=== PATIENT | male | born 1950 | race Caucasian/White ===

== ENCOUNTER 2016-07-17 15:14 | Emergency (ER) | payer MEDICARE, OTHER ==
[2016-07-17] MEDS ORDERED: LIDOCAINE-MPF 1% 5 ML VIAL ONE (15:20)
[2016-07-17] MEDS ORDERED: SODIUM BICARBONATE ABBOJECT 50 MEQ/50 ML SYRINGE ONE (15:20)
[2016-07-17] MEDS ORDERED: TETANUS/DIPHTHERIA/PERTUSSIS 0.5 ML SYRINGE IM ONE ×2 (15:21→15:36)
== END 2016-07-17 15:57 | disposition home or self-care (01) ==
DX: S61.213A Laceration without foreign body of left middle finger without damage to nail, initial encounter (principal); W27.1XXA Contact with garden tool, initial encounter; Y93.H2 Activity, gardening and landscaping; Z23 Encounter for immunization

== ENCOUNTER 2019-11-30 13:17 | Outpatient (CLI) | payer MEDICARE, OTHER | END 2019-11-30 13:18 | disposition home or self-care (01) | LOC: LAB.S 13:17 | PROVIDERS: ATTEND Ophthalmology | DX: Z01.812 Encounter for preprocedural laboratory examination (principal); H25.11 Age-related nuclear cataract, right eye; Z20.828 Contact with and (suspected) exposure to other viral communicable diseases ==

== ENCOUNTER 2019-12-02 07:36 | Day surgery (SDC) | payer MEDICARE, OTHER ==
[~2019-12-02 07:36] MED LIST: BRIMONIDINE 0.2% OPHTH DROPS 5 ML ONE; BSS/LIDOCAINE/EPINEPHRINE 1 ML SYRINGE ONE; EPINEPHrine 1 MG/ML AMP ONE; TRIAMCIN/MOXIFLOX OPHTHALMIC 0.6 ML VIAL IO ONE; VANCOMYCIN OPHTHALMI 8MG/0.8ML 8 MG/0.8 ML SYRINGE IO ONE; timoloL maleate 0.5% OPHTH DROPS (10ML) ONE
[2019-12-02] MEDS ORDERED: PHENYLEPHRINE 2.5% OPHTH 2 ML DROPS ONE (07:41)
[2019-12-02] MEDS ORDERED: PROPARACAINE 0.5% OPHTH DROPS 15 ML ONE (07:41)
[2019-12-02] MEDS ORDERED: CYCLOPENTOLATE 1% OPHTH DROPS 2 ML ONE (07:41)
[2019-12-02] MEDS ORDERED: KETOROLAC 0.45% OPHTH DROPS ONE (07:41)
[2019-12-02] MEDS ORDERED: LACTATED RINGERS 500 ML IV ONE ×2 (07:57→09:27)
--- NOTE | 2019-12-02 08:35 | ANESTHESIA ---
Pre-Anesthesia VS, & Labs - Diagnosis right eye cataract - Procedure right ecce with IOL Vital Signs: Temp Pulse Resp BP Pulse Ox 36.8 C 94 18 158/84 H 98 12/02/19 07:42 12/02/19 07:42 12/02/19 07:42 12/02/19 07:42 12/02/19 07:42 Height 5 ft 11.5 in Weight (kg) 101 kg Body Mass Index 28.5 - NPO >8 hours Home Medications and Allergies No Known Home Medications 07/17/16 Allergies/Adverse Reactions: Allergies Allergy/AdvReac Type Severity Reaction Status Date / Time ibuprofen [From Advil] AdvReac Unknown Hives Unverified 12/01/19 12:27 aluminum hydroxide AdvReac Hives Verified 12/01/19 12:27 Anes History & Medical History - Anesthetic History Anesthesia Complications: reports: No previous complications Family history of Anesthesia Complications: Denies Family history of Malignant Hyperthermia: Denies - Medical History Cardiovascular: reports: None Pulmonary: reports: None, Sleep apnea Gastrointestinal: reports: Hiatal hernia Urinary: reports: None Musculoskeletal: reports: None Endocrine/Autoimmune: reports: None Skin: reports: None Smoking Status: Never smoker - Surgical History General: Colonoscopy Eyes Ears Nose Throat (EENT): Tonsil/Adenoidectomy Exam General: Alert, Oriented x3, Cooperative Dental: TMJ Mouth Openin Fingerbreadth Neck Mobility: Normal Mallampati classification: II Thyromental Distance: 4-6 cm Respiratory: Lungs clear, Normal breath sounds, No respiratory distress, No accessory muscle use Cardiovascular: Regular rate, Normal S1, Normal S2, No murmurs Abdomen: Normal bowel sounds, Soft, No tenderness, No hepatospenomegaly, No masses Extremities: No clubbing, No cyanosis, No edema, Normal pulses, No tenderness/swelling Neurological: Normal gait, Normal speech, Strength at 5/5 X4 ext, Normal tone, Sensation intact, Cranial nerves 3-12 NL, Reflexes 2+ Mental/Cognitive Status: Alert/Oriented X3, Normal for patient Cognitive Status: Within normal limits Plan Anesthesia Type: MAC Consent for Procedure(s) Verified and Reviewed: Yes Code Status: Attempt Resuscitation ASA classification: 2-Mild systemic disease Is this case an emergency?: No
[2019-12-02] MEDS ORDERED: CHONDR SULF/HYALURONATE SYRINGE IO ONE (09:19)
[2019-12-02] MEDS ORDERED: EPINEPHrine 1 MG/ML AMP IR ONE (09:19)
[2019-12-02] MEDS ORDERED: BRIMONIDINE 0.2% OPHTH DROPS 5 ML OPTH ONE (09:19)
[2019-12-02] MEDS ORDERED: BSS/LIDOCAINE/EPINEPHRINE 1 ML SYRINGE IO ONE (09:20)
[2019-12-02] MEDS ORDERED: VANCOMYCIN OPHTHALMI 8MG/0.8ML 8 MG/0.8 ML SYRINGE IO ONE (09:20)
[2019-12-02] MEDS ORDERED: PROPARACAINE 0.5% OPHTH DROPS 15 ML EACHEYE ONE (09:20)
[2019-12-02 10:00] VITALS: BP 117/85
--- NOTE | 2019-12-02 10:18 | OPERATIVE REPORT ---
DATE OF SERVICE: 12/02/2019 Physician: Marcial Esquivel MD PREOPERATIVE DIAGNOSIS: Visually significant cataract, right eye. This was his first cataract surge ry. POSTOPERATIVE DIAGNOSIS: Visually significant cataract, right eye. This was his first cataract surg jessica. PROCEDURE: Phacoemulsification with posterior chamber intraocular lens implant, right eye. SURGEON: Marcial Esquivel MD ANESTHESIA: Monitored anesthesia care. COMPLICATIONS: None. OPERATIVE INDICATIONS: This is a 69-year-old man with progressive vision loss in the right eye due t o 4+ nuclear sclerotic and vacuolar cataract. Best corrected visual acuity was 20/50, with glare to hand motion vision in the right eye. Indications for surgery were overall decrease in vision, diffic ulty seeing street signs, and difficulty tracking a golf ball. He was consented at length concerning risks and benefits of cataract surgery, after which he expressed a desire to proceed with surgery. OPERATIVE PROCEDURE: Patient was taken to OR #3 and placed under monitored anesthesia care. A surgi brooke timeout was conducted confirming correct patient, correct procedure, and correct surgical site. He was given topical anesthesia, and prepped and draped in the usual sterile fashion. The eye was en tered at the 12 and 9 o'clock positions. Intracameral Shugarcaine was injected into the anterior mabel mber, followed by Viscoat. A continuous-tear curvilinear capsulorrhexis was performed. The nucleus was hydrodissected and phacoemulsified. The cortex was evacuated using automated infusion and aspira tion. Provisc was injected in the capsular bag, and a 18.5 diopter intraocular lens inserted in the bag. Infusion and aspiration was used to evacuate the viscoelastic materials. The eye was inflated to physiologic pressure using balanced salt solution and found to be watertight. Approximately 0.25 mL of a mixture of triamcinolone and moxifloxacin was injected trans sclerally into the vitreous in i nferotemporal quadrant. An additional 0.55 mL of a mixture of triamcinolone, moxifloxacin and vancom ycin was injected subconjunctivally in the superior quadrant for infection and inflammation prophylax is. Wound integrity was checked with Weck-Nola sponges. Patient was taken from the Operating Room in good condition and given postoperative instructions. TD: 12/02/2019 09:54
== END 2019-12-02 07:37 | disposition home or self-care (01) ==
LOC: SDS 07:36
PROVIDERS: ATTEND Ophthalmology
DX: H25.11 Age-related nuclear cataract, right eye (principal); G47.30 Sleep apnea, unspecified
CPT/HCPCS: 66984; A9270; J3490; J7120; V2632

== ENCOUNTER 2019-12-17 15:36 | Outpatient (CLI) | payer MEDICARE, OTHER | END 2019-12-17 15:37 | disposition home or self-care (01) | LOC: COV 15:36 | PROVIDERS: ATTEND Ophthalmology | DX: Z01.812 Encounter for preprocedural laboratory examination (principal); H25.12 Age-related nuclear cataract, left eye; Z11.59 Encounter for screening for other viral diseases ==